=== PATIENT | male | born 1980 | race Caucasian/White ===

== ENCOUNTER 2023-06-29 10:42 | Emergency (ER) | payer BC, OTHER ==
[~2023-06-29] VITALS: Ht 185.4 cm; Wt 99.8 kg
[2023-06-29] MEDS ORDERED: BENZ-13 PO (11:28)
[2023-06-29 11:46] VITALS: BP 125/65; TEMP 98.6; O2SAT 97
== END 2023-06-29 11:48 | disposition home or self-care (01) ==
LOC: ER 10:42
DX: U07.1 COVID-19 (principal); J06.9 Acute upper respiratory infection, unspecified; R05.9 Cough, unspecified; R06.02 Shortness of breath; R07.89 Other chest pain; Z88.0 Allergy status to penicillin